=== PATIENT | male | born 1960 | race American Indian/Alaskan Native ===

== ENCOUNTER 2016-07-18 07:41 | Emergency (ER) | payer BC ==
--- NOTE | 2016-07-18 09:53 | Emergency Department Report ---
HPI - General Chief Complaint: Allergic Reaction Time Seen by Provider: 07/18/16 09:38 - HPI HPI: Patient complaining of burning stinging rash to left axilla and chest. Denies fever, chills, myalgias, photophobia, or neck pain. Patient also relates she's been out of his blood pressure medicine for approximately 3 months. Patient denies any headaches, blurred vision, chest pain, dyspnea on exertion, shortness of breath or syncope. ED Past Medical Hx - Past Medical History Previous Medical History?: Yes Hx Hypertension: Yes Hx Congestive Heart Failure: No Hx Diabetes: No Hx Kidney Stones: Yes Hx Asthma: No Hx COPD: No Additional medical history: OBESITY - Surgical History Past Surgical History?: Yes Additional Surgical History: lithotripsy. stents (Kidney) - Social History Smoking Status: Never Smoker Substance Use Type: Prescribed - Medications Home Medications: Home Medications Medication Instructions Recorded Confirmed Last Taken Type Albuterol Sulfate [Proventil HFA] 1 - 2 puff IH Q4H PRN #1 hfa.aer.ad 06/05/14 Unknown Rx Ciprofloxacin HCl [Cipro] 500 mg PO Q12H #14 tab 06/05/14 Unknown Rx HYDROcodone/ACETAMINOPHEN [[place] 1 each PO Q4-6H PRN #20 tablet 06/05/14 Unknown Rx 7.5-325 mg TAB] Ibuprofen [Motrin] 800 mg PO Q8H PRN #30 tablet 06/05/14 Unknown Rx Ondansetron [Zofran Odt] 4 mg PO Q6H PRN #20 tab.rapdis 06/05/14 Unknown Rx Acyclovir [Zovirax Tab] 800 mg PO Q12H #50 tab 07/18/16 Unknown Rx Gabapentin [Gralise] 300 mg PO BID #20 tab.er.24h 07/18/16 Unknown Rx HYDROcodone/APAP 5-325 [[place] 1 each PO Q4HR PRN #10 tablet 07/18/16 Unknown Rx 5/325] amLODIPine [Norvasc] 10 mg PO DAILY #30 tab 07/18/16 Unknown Rx ED Review of Systems ROS: Stated complaint: Bug Bite Other details as noted in HPI Physical Exam - Physical Exam Vital Signs: Vital Signs 07/18/16 08:22 Temperature 98.8 F Pulse Rate 76 Respiratory 20 Rate Blood Pressure 175/94 O2 Sat by Pulse 96 Oximetry General: Patient awake alert and oriented, normotensive and normal cardiac and afebrile. No focal neuro deficit noted HEENT clear, patient has a fascicular dermatomal rash consistent with shingles. Breath sounds clear to auscultation patient has no respiratory distress. Abdomen soft nontender. ED Course Vital Signs 07/18/16 08:22 Temperature 98.8 F Pulse Rate 76 Respiratory 20 Rate Blood Pressure 175/94 O2 Sat by Pulse 96 Oximetry Critical care attestation.: If time is entered above; I have spent that time in minutes in the direct care of this critically ill patient, excluding procedure time. ED Disposition Clinical Impression: Shingles, Medication refill Disposition: DISCHARGED TO HOME OR SELFCARE Is pt being admited?: No Condition: Stable Instructions: Herpes Zoster (ED) Prescriptions: Acyclovir [Zovirax Tab] 800 mg PO Q12H #50 tab amLODIPine [Norvasc] 10 mg PO DAILY #30 tab Gabapentin [Gralise] 300 mg PO BID #20 tab.er.24h HYDROcodone/APAP 5-325 [[place] 5/325] 1 each PO Q4HR PRN #10 tablet PRN Reason: Pain Referrals: PRIMARY MD TOMY [Primary Care Provider] - 3-5 Days DANTE GUTIÉRREZ MD [Staff Physician] - 3-5 Days
[2016-07-18 10:20] VITALS: BP 164/102
== END 2016-07-18 10:19 | disposition home or self-care (01) ==
LOC: ED 07:41
DX: B02.9 Zoster without complications (principal); I10 Essential (primary) hypertension; E66.9 Obesity, unspecified
CPT/HCPCS: 99282